=== PATIENT | female | born 1985 | race Caucasian/White ===

== ENCOUNTER 2024-05-19 12:40 | Emergency (ER) | payer OTHER ==
[2024-05-19] MEDS ORDERED: FAMOTIDINE 20 MG/50 ML IVPB 20 MG/50 ML MG IVPB ONE (13:47)
[2024-05-19] MEDS ORDERED: ONDANSETRON 4 MG/2 ML VIAL ONE (13:47)
[2024-05-19] MEDS ORDERED: ACETAMINOPHEN INJECTION 100 ML ONE (13:47)
[2024-05-19 13:52] LABS: BASO % 0.3 % (0-2.0); EOS % 0.6 % (0-4.5); HEMATOCRIT 40.6 % (32.4-45.2); HEMOGLOBIN 13.8 GM/dL (10.7-15.3); LYMPH % 25.7 % (8-40); MCH 28.6 pg (25.7-33.7); MEAN PLT VOLUME 7.4 fl (7.5-11.1); MONO % 7.8 % (3.8-10.2); NEUT % 65.6 % (42.8-82.8); PLATELET COUNT 250 10^3/uL (134-434); RBC 4.84 M/mm3 (3.60-5.2); RDW 13.1 % (11.6-15.6); WHITE BLOOD COUNT 5.9 K/mm3 (4.0-10.0)
[2024-05-19 13:55] VITALS: BP 114/72; PULSE 72; RESP 19; TEMP 98.8; BMI 25.0
[2024-05-19 13:59] LABS: EPI CELLS >36 /uL (0-25.1); HYALINE CASTS 0 /uL (0-3.1); INR 0.95 (0.83-1.09); PROTHROMBIN TIME (PATIENT) 10.8 SEC (9.7-13.0); URINE APPEARANCE CLEAR; URINE BACTERIA 534 /uL (0-1359); URINE BILIRUBIN NEGATIVE (NEGATIVE); URINE COLOR YELLOW; URINE GLUCOSE (UA) NEGATIVE (NEGATIVE); URINE KETONE TRACE (NEGATIVE); URINE LEUK ESTERASE TRACE (NEGATIVE); URINE NITRITE NEGATIVE (NEGATIVE); URINE PROTEIN NEGATIVE (NEGATIVE); URINE RBC 5 /uL (0-23.9); URINE UROBILINOGEN 0.2 mg/dL (0.2-1.0); URINE WBC 12 /uL (0-25.8)
[2024-05-19 14:01] LABS: ACTIVATED PTT 36.1 SECONDS (25.2-36.5)
[2024-05-19] MEDS: SODIUM CHLORIDE 0.9% 500 ML INFUS.BAG IV ONE (14:02)
[2024-05-19] MEDS: ACETAMINOPHEN 1000 MG/100 ML BAG IVPB ONE (14:02)
[2024-05-19] MEDS: ONDANSETRON 4 MG/2 ML VIAL IVPUSH ONE (14:03)
[2024-05-19] MEDS: FAMOTIDINE 20 MG/50 ML IVPB 20 MG/50 ML MG IVPB ONE (14:03)
[2024-05-19 14:08] LABS: POTASSIUM 3.9 mmol/L (3.5-5.1)
[2024-05-19 14:10] LABS: ALBUMIN 4.2 g/dl (3.4-5.0); CALCIUM 9.7 mg/dL (8.5-10.1)
[2024-05-19 14:11] LABS: BLOOD UREA NITROGEN 20.1 mg/dL (7-18)
[2024-05-19 14:14] LABS: CREATININE 0.6 mg/dL (0.55-1.3)
[2024-05-19 14:15] LABS: BILIRUBIN,TOTAL 0.5 mg/dL (0.2-1); TOT PROT 7.7 g/dl (6.4-8.2)
[2024-05-19] MEDS ORDERED: CEFTRIAXONE 1 G/50 ML PREMIX 50 ML IVPB ONE (16:41)
[2024-05-19 16:55] LABS: HIV INTERPRETATION NEGATIVE (NEGATIVE)
== END 2024-05-19 17:17 | disposition home or self-care (01) ==
LOC: JER 12:40
PROC: 3E033GC Introduction of Other Therapeutic Substance into Peripheral Vein, Percutaneous Approach (ICD-10-PCS; principal; 2024-05-19)
PROC: 3E033NZ Introduction of Analgesics, Hypnotics, Sedatives into Peripheral Vein, Percutaneous Approach (ICD-10-PCS; 2024-05-19)
PROC: 3E03329 Introduction of Other Anti-infective into Peripheral Vein, Percutaneous Approach (ICD-10-PCS; 2024-05-19)
PROC: 3E033GC Introduction of Other Therapeutic Substance into Peripheral Vein, Percutaneous Approach (ICD-10-PCS; 2024-05-19)
DX: R53.1 Weakness (principal); R11.0 Nausea; M54.50 Low back pain, unspecified; Z20.822 Contact with and (suspected) exposure to COVID-19
CPT/HCPCS: 0241U-QW; 36415; 71046-TC-FY; 80053; 81003; 83690; 84484; 84703; 85025; 85610; 85730; 86803; 86850; 86900; 86901; 87086; 87389; 93005; 93010; 99285-25; J0131